=== PATIENT | female | born 1990 | race Hispanic/Latino ===

== ENCOUNTER 2020-11-03 09:55 | Emergency (ER) | payer SELFPAY ==
[2020-11-03 11:11] LABS: #Basophils 0.1 thou/uL (0.0-0.2); #Eosinphils 0.1 thou/uL (0.0-0.7); #Lymphocytes 1.9 thou/uL (1.20-3.40); #Monocytes 0.6 thou/uL (0.11-0.59); #Neutrophils 5.5 thou/uL (1.40-6.50); %Eosinophils 1.4 % (0.0-10.0); %Lymphocytes 23.3 % (21.0-51.0); %Monocytes 7.3 % (0.0-10.0); %Neutrophils 67.1 % (42.0-75.0); Hemoglobin 13.4 g/dL (12.0-16.0); Mean Corpuscular HGB CONC 33.3 g/dL (32.0-36.0); Mean Corpuscular Hemoglobin 29.6 pg (27.0-31.0); Mean Corpuscular Volume 88.8 fL (78.0-98.0); Mean Platelet Volume 8.1 fL (7.4-10.4); Platelet Count 316 thou/uL (130-400); RBC Distribution Width 12.3 % (11.5-14.5); Red Blood Cell (RBC) Count 4.53 mill/uL (4.20-5.40); White Blood Cell (WBC) Count 8.1 thou/uL (4.8-10.8)
--- NOTE | 2020-11-03 13:31 | ULT ---
Obstetric sonogram transabdominal imaging HISTORY: Pelvic pain. Early . FINDINGS: Urinary bladder incompletely distended. Uterus measures up to 11.8 cm. Gestational sac with in the endometrial cavity contains a yolk sac and pole heart motion at 160 bpm. Amniotic fluid is lower than expected. Safford-rump length correlates with 10 weeks 2 days size (gestational sac correlates with 8 weeks 2 days). No free fluid within the pelvis. Maternal ovaries not visualized. IMPRESSION : Single intrauterine gestation. Estimated gestational age 10 weeks 2 days. Less than expected amniotic fluid.
[2020-11-03 13:52] LABS: Bacteria/HPF None Seen HPF (None Seen); Bilirubin Negative (Negative); Blood, Urine 1+ (Negative); Clarity Clear (Clear); Glucose, Urine (Dipstick) Normal (Negative); Ketone, Urine Negative (Negative); Leukocyte Negative Leu/uL (Negative); Nitrite Negative (Negative); Protein, Urine (Dipstick) Negative (Neg-Trace); RBC/HPF 0-3 HPF (0-3); Specific Gravity, Urine 1.006 (1.002-1.036); Squamous Epithelial 0-3 HPF (0-3); Urobilinogen Normal mg/dL (Less than 2); WBC/HPF 0-3 HPF (0-3)
== END 2020-11-03 15:00 | disposition home or self-care (01) ==
LOC: ERS 09:55
DX: O20.0 Threatened abortion (principal); Z3A.10 10 weeks gestation of pregnancy
CPT/HCPCS: 36415; 76856; 81003; 81015; 84702; 85025; 86900; 86901